=== PATIENT | female | born 1995 | race Caucasian/White ===

== ENCOUNTER 2020-04-15 22:05 | Inpatient (IN) ==
[2020-04-15] MEDS ORDERED: ACETAMINOPHEN 325 MG TABLET PO PRN (22:15)
[2020-04-15] MEDS ORDERED: MEPERIDINE 50 MG/1 ML VIAL IM PRN (22:15)
[2020-04-15] MEDS ORDERED: LACTATED RINGERS 500 ML IV PRN (22:15)
[2020-04-15] MEDS ORDERED: BUTORPHANOL 2 MG/ML VIAL IV PRN (22:15)
[2020-04-15 22:52] LABS: Basophils % 0.3 % (0.0-0.8); Eosinophils # 0.1 10*3/uL (0.0-0.87); Eosinophils % 0.9 % (0.00-10.9); Hematocrit 32.7 VOL% (35.7-47.0); Hemoglobin 10.8 GM/DL (12.0-16.0); Immature Granulocytes % 1.3 %; Immature Granulocytes Absolute 0.15 #; Lymphocytes # 2.3 10*3/uL (1.4-4.0); Lymphocytes % 19.2 % (21.3-54.2); Mean Corpuscular Volume 87.2 FL (87-102); Mean Platelet Volume 9.8 FL (9.6-12.0); Monocytes % 7.9 % (1.7-12.7); Neutrophils % 70.4 % (38.7-73.9); Platelet Count 288 T/CUMM (130-400); Red Blood Count 3.75 MC/CUMM (3.8-5.5); Red Cell Distribution Width 13.2 % (9.3-17.3); White Blood Count 11.7 T/CUMM (4-12)
[2020-04-15 23:12] LABS: Alanine Aminotransferase 17 U/L (13-56); Albumin 2.7 G/DL (3.4-5.0); Alkaline Phosphatase 111 U/L (45-117); Aspartate Amino Transferase 14 U/L (0-37); Bilirubin,Total < 0.39 MG/DL (0.2-1.0); Blood Urea Nitrogen 11 MG/DL (7-18); Calcium 8.6 MG/DL (8.5-10.1); Estimated Glom Filtration Rate 141 ML/MIN; Glucose 87 MG/DL (74-106); Osmolality,Calculated 274.5 MOS/KG (273-304)
[2020-04-16] MEDS ORDERED: ePHEDrine 50 MG/ML VIAL IV PRN (11:26)
[2020-04-16] MEDS ORDERED: NALOXONE 0.4 MG/ML VIAL IV PRN (11:26)
[2020-04-16] MEDS ORDERED: diphenhydrAMINE 50 MG/1 ML VIAL IV PRN ×2 (11:26)
[2020-04-16] MEDS ORDERED: LACTATED RINGERS 1,000 ML IV PRN ×2 (11:26)
[2020-04-16] MEDS ORDERED: ONDANSETRON 4 MG/2 ML VIAL IV PRN (11:26)
[2020-04-16] MEDS ORDERED: FAMOTIDINE 20 MG/2 ML VIAL IV ONE (11:26)
[2020-04-16] MEDS ORDERED: hydrOXYzine HCL 25 MG/1 ML VIAL IM PRN (11:26)
[2020-04-16] MEDS ORDERED: CITRIC ACID/SODIUM CITRATE 30 ML UDCUP PO ONE (11:26)
[2020-04-16] MEDS ORDERED: PROMETHAZINE 25 MG/1 ML VIAL IM PRN (11:26)
[2020-04-16] MEDS: LACTATED RINGERS 1,000 ML IV SCH (11:30)
[2020-04-16] MEDS ORDERED: ZALEPLON 5 MG CAPSULE PO PRN (17:00)
[2020-04-16] MEDS: ONDANSETRON 4 MG/2 ML VIAL IV PRN (23:01)
[2020-04-17] MEDS ORDERED: CITRIC ACID/SODIUM CITRATE 30 ML UDCUP ONE (01:57)
[2020-04-17] MEDS ORDERED: FAMOTIDINE 20 MG/2 ML VIAL IV ONE (01:58)
[2020-04-17] MEDS: fentaNYL 2 MCG/ROPIV 0.2% EPID 100 ML EPIDURAL SCH ×2 (03:00→09:38)
[2020-04-17] MEDS: LACTATED RINGERS 1,000 ML IV SCH ×2 (03:17→11:57)
[2020-04-17] MEDS ORDERED: OXYTOCIN/LR 20 UNIT/1,000 ML BAG IV SCH (04:00)
[2020-04-17 04:13] LABS: Bilirubin,Urine Negative (Negative); Blood, Urine Negative (Negative); Glucose,Urine (UA) Negative (Negative); Ketones,Urine Negative (Negative); Mucus,Urine Few /LPF (Occasional); Nitrite,Urine Negative (Negative); Protein,Urine Negative; RBC,Urine <1 /HPF (0-4); Squamous Epithelial Cell,Urine Occasional /HPF (0-10); Urine Appearance CLEAR (Clear); Urine Color Yellow (Yellow); WBC,Urine 1 /HPF (0-6)
[2020-04-17] MEDS: ONDANSETRON 4 MG/2 ML VIAL IV PRN (04:14)
[2020-04-17] MEDS ORDERED: OXYTOCIN/LR 20 UNIT/1,000 ML BAG IV ONE ×2 (09:30→13:05)
[2020-04-17] MEDS ORDERED: METHYLERGONOVINE 0.2 MG/1 ML AMP ONE (09:30)
[2020-04-17] MEDS ORDERED: miSOPROStoL 200 MCG TABLET ONE (09:30)
[2020-04-17] MEDS ORDERED: CARBOPROST TROMETHAMINE 250 MCG/ML AMP IM ONE (09:30)
[2020-04-17] MEDS ORDERED: TRANEXAMIC ACID 1,000 MG/10 ML VIAL ONE (09:30)
[2020-04-17] MEDS ORDERED: ONDANSETRON 4 MG/2 ML VIAL IV PRN (13:05)
[2020-04-17] MEDS ORDERED: WITCH HAZEL PADS 100/JAR TOP PRN (13:05)
[2020-04-17] MEDS ORDERED: RHO(D) IMMUNE GLOBULIN 300 MCG SYRINGE IM ONE (13:05)
[2020-04-17] MEDS ORDERED: DIPH/TET/ACEL PERT BOOSTER VACCINE 0.5 ML VIAL IM ONE (13:05)
[2020-04-17] MEDS ORDERED: HYDROCORTISONE 2.5% RECTAL CREAM 30 GM TUBE TOP PRN (13:05)
[2020-04-17] MEDS ORDERED: MEASLES/MUMPS/RUBELLA VACCINE 0.5 ML VIAL SUBCUT ONE (13:05)
[2020-04-17] MEDS ORDERED: LANOLIN 50% CREAM 0.3 OZ TUBE TOP PRN (13:05)
[2020-04-17] MEDS ORDERED: ACETAMINOPHEN 325 MG TABLET PO PRN (13:05)
[2020-04-17] MEDS ORDERED: BENZOCAINE 20%/MENTHOL 0.5% SPRAY 56 GM CAN TOP PRN (13:05)
[2020-04-17] MEDS ORDERED: BISACODYL 10 MG SUPP RECTAL PRN (13:05)
[2020-04-17 13:12] LABS: Cord Arterial Blood HCO3 22.8 MMOL/L
[2020-04-17 13:15] LABS: Cord Venous Blood HCO3 20.4 MMOL/L; Cord Venous Blood PCO2 48.7 MMHG; Cord Venous Blood PO2 27.8 MMHG
[2020-04-17] MEDS: oxyCODONE/ACETAMINOPHEN 5-325 MG TABLET PO PRN ×2 (14:03→19:19)
[2020-04-17] MEDS: DOCUSATE SODIUM 100 MG CAPSULE PO SCH (20:27)
[2020-04-17] MEDS: IBUPROFEN 800 MG TABLET PO PRN (22:22)
[2020-04-18] MEDS ORDERED: diphenhydrAMINE CAP 25 MG CAPSULE PO PRN (02:24)
[2020-04-18 05:50] LABS: Basophils % 0.2 % (0.0-0.8); Eosinophils # 0.2 10*3/uL (0.0-0.87); Eosinophils % 1.3 % (0.00-10.9); Hematocrit 28.6 VOL% (35.7-47.0); Hemoglobin 9.5 GM/DL (12.0-16.0); Immature Granulocytes % 0.8 %; Immature Granulocytes Absolute 0.11 #; Lymphocytes # 2.2 10*3/uL (1.4-4.0); Lymphocytes % 16.5 % (21.3-54.2); Mean Corpuscular HGB Conc 33.2 GM/DL (32-36); Mean Corpuscular Volume 86.7 FL (87-102); Mean Platelet Volume 10.1 FL (9.6-12.0); Monocytes % 7.6 % (1.7-12.7); Neutrophils % 73.6 % (38.7-73.9); Platelet Count 232 T/CUMM (130-400); Red Cell Distribution Width 13.5 % (9.3-17.3); White Blood Count 13.2 T/CUMM (4-12)
[2020-04-18] MEDS: oxyCODONE/ACETAMINOPHEN 5-325 MG TABLET PO PRN ×2 (08:06→21:10)
[2020-04-18] MEDS: DOCUSATE SODIUM 100 MG CAPSULE PO SCH ×2 (08:06→21:10)
[2020-04-18] MEDS: IBUPROFEN 800 MG TABLET PO PRN ×2 (11:10→18:10)
[2020-04-19] MEDS: IBUPROFEN 800 MG TABLET PO PRN ×3 (01:29→17:39)
[2020-04-19 07:11] VITALS: BP 107/56
[2020-04-19] MEDS: DOCUSATE SODIUM 100 MG CAPSULE PO SCH (09:28)
[2020-04-19] MEDS: oxyCODONE/ACETAMINOPHEN 5-325 MG TABLET PO PRN ×2 (09:31→17:30)
== END 2020-04-19 18:35 | disposition home or self-care (01) | DRG 807 ==
LOC: N.LD → OBSVTOIN 22:05 → N.OB 04-17 16:23
PROVIDERS: ADMIT Specialist; ATTEND Specialist